=== PATIENT | male | born 1980 | race Caucasian/White ===

== ENCOUNTER 2023-10-05 14:49 | Emergency (ER) | payer OTHER ==
[2023-10-05] MEDS ORDERED: Lidocaine 1% w/Epinephrine 1:100K 20 ML VIAL ONE (15:14)
[2023-10-05] MEDS ORDERED: Boostrix 0.5 ML (Tdap) VIAL (>/=7 yrs of age) ONE (15:20)
[2023-10-05] MEDS ORDERED: Bacitracin 1 PK ONE (15:42)
== END 2023-10-05 15:50 | disposition home or self-care (01) ==
LOC: MADERS 14:49
DX: S51.812A Laceration without foreign body of left forearm, initial encounter (principal); I10 Essential (primary) hypertension; W26.8XXA Contact with other sharp object(s), not elsewhere classified, initial encounter; Z23 Encounter for immunization
CPT/HCPCS: 12001; 90471; 90715

== ENCOUNTER 2024-01-30 13:54 | Emergency (ER) | payer OTHER | END 2024-01-30 14:40 | disposition home or self-care (01) | LOC: MADERS 13:54 | DX: L02.01 Cutaneous abscess of face (principal) | CPT/HCPCS: 99283 ==

== ENCOUNTER 2024-07-01 14:03 | Emergency (ER) | payer OTHER ==
[2024-07-01 15:05] LABS: #Basophils 0.1 thou/uL (0.0-0.2); #Eosinophils 0.5 thou/uL (0.0-0.7); #Lymphocytes 1.6 thou/uL (1.20-3.40); #Monocytes 0.5 thou/uL (0.11-0.59); #Neutrophils 5.1 thou/uL (1.40-6.50); %Basophils 1.4 % (0.0-1.0); %Eosinophils 5.8 % (0.0-10.0); %Lymphocytes 20.9 % (21.0-51.0); %Monocytes 6.3 % (0.0-10.0); %Neutrophils 65.6 % (42.0-75.0); Hematocrit 42.3 % (42.0-52.0); Hemoglobin 14.1 g/dL (14.0-18.0); Mean Corpuscular HGB CONC 33.3 g/dL (32.0-36.0); Mean Corpuscular Hemoglobin 29.4 pg (27.0-31.0); Mean Corpuscular Volume 88.3 fl (78.0-98.0); Platelet Count 263 10x3/uL (130-400); RBC Distribution Width 11.5 % (11.5-14.5); Red Blood Cell (RBC) Count 4.79 mill/uL (4.70-6.10); White Blood Cell (WBC) Count 7.8 10x3/uL (4.8-10.8)
[2024-07-01 15:19] LABS: ALT (SGPT) 25 U/L (8-55); AST (SGOT) 21 U/L (5-34); Albumin 3.8 g/dL (3.5-5.0); Alkaline Phosphatase 80 U/L (40-110); Anion Gap 14 mmol/L (10-20); BUN (Urea Nitrogen) 8 mg/dL (8.9-20.6); Bilirubin, Total 0.5 mg/dL (0.2-1.2); Calc. Creatinine Clearance 0 mL/min (70-130); Calcium 8.5 mg/dL (7.8-10.44); Carbon Dioxide 27 mmol/L (22-29); Chloride 106 mmol/L (98-107); Estimated GFR 82; Globulin 2.2 g/dL (2.4-3.5); Glucose 122 mg/dL (70-105); Potassium 3.6 mmol/L (3.5-5.1); Sodium 143 mmol/L (136-145)
== END 2024-07-01 16:19 | disposition home or self-care (01) ==
LOC: MADERS 14:03
DX: I10 Essential (primary) hypertension (principal); F17.220 Nicotine dependence, chewing tobacco, uncomplicated
CPT/HCPCS: 36415; 80053; 85025; 99283